=== PATIENT | female | born 1970 | race Caucasian/White ===

== ENCOUNTER 2016-11-01 22:09 | Emergency (ER) | payer BC, OTHER ==
[2016-11-01 22:15] VITALS: TEMP 97.7
[2016-11-01] MEDS ORDERED: ASPIRIN 81 MG CHEW PO STA (22:23)
[2016-11-01] MEDS ORDERED: SODIUM CHLORIDE 0.9% 1,000 ML IV STA (22:23)
--- NOTE | 2016-11-01 22:26 | ED ---
Chest Pain HPI - General Chief Complaint: Chest Pain Stated Complaint: Chest Pain Time Seen by Provider: 11/01/16 22:17 Source: patient, RN notes reviewed Mode of arrival: wheelchair Limitations: no limitations - History of Present Illness Initial Comments: 46-year-old female presents to the emergency department with a chief complaint of left-sided chest pain. Patient states this happened tonight. Patient states just became the stabbing pain that radiated around to her back. Patient states there is no shortness of breath no difficulty breathing no pain to touch. Patient states that she has had this chest pain before. Patient states she'll get it every night before she goes to bed for about a month ago she had an episode with this type intensity. Patient was concerned due to the pain so she thought they should be seen. Patient has no heart history no family heart history patient is a nonsmoker. Patient states her chest pain has since resolved. Patient denies any recent fever, chills, shortness of breath, back pain, abdominal pain, nausea vomiting, numbness or tingling, dysuria or hematuria, constipation or diarrhea, headaches or visual changes, or any other current symptoms. - Related Data Home Medications Medication Instructions Recorded Confirmed Cholecalciferol [Vitamin D3] 1,000 unit PO DAILY 11/01/16 11/01/16 Ibuprofen [Motrin] 600 mg PO Q6HR PRN 11/01/16 11/01/16 Turmeric Root Extract [Turmeric] 500 mg PO DAILY 11/01/16 11/01/16 traMADol HCL [Ultram] 50 mg PO DAILY 11/01/16 11/01/16 Allergies Allergy/AdvReac Type Severity Reaction Status Date / Time No Known Allergies Allergy Verified 11/01/16 22:37 Review of Systems ROS Statement: Those systems with pertinent positive or pertinent negative responses have been documented in the HPI. ROS Other: All systems not noted in ROS Statement are negative. EKG Findings - EKG Comments: EKG Findings:: normal sinus rhythm with premature ventricular complexes 71 bpm, normal axis, no atopy, no S-T depressions or elevations, Past Medical History Additional Past Medical History / Comment(s): back pain History of Any Multi-Drug Resistant Organisms: None Reported Additional Past Surgical History / Comment(s): d&c Past Psychological History: No Psychological Hx Reported Smoking Status: Former smoker Past Alcohol Use History: None Reported Past Drug Use History: None Reported General Exam - General Exam Comments Initial Comments: General: The patient is awake and alert, in no distress, and does not appear acutely ill. Eye: Pupils are equal, round and reactive to light, extra-ocular movements are intact; there is normal conjunctiva bilaterally. No signs of icterus. Ears, nose, mouth and throat: There are moist mucous membranes. Neck: The neck is supple, there is no tenderness. Cardiovascular: There is a regular rate and rhythm. No murmur, rub or gallop is appreciated. Respiratory: Lungs are clear to auscultation, respirations are non-labored, breath sounds are equal. No wheezes, stridor, rales, or rhonchi. Gastrointestinal: Soft, non-distended, non-tender abdomen without masses or organomegaly noted. There is no rebound or guarding present. No CVA tenderness. Bowel sounds are unremarkable. Back: There is no tenderness to palpation in the midline. There is no obvious deformity. No rashes noted. Musculoskeletal: Normal ROM, no tenderness, There is no pedal edema. There is no calf tenderness or swelling. Sensation intact. Pulses equal bilaterally 2+. Neurological: CN II-XII intact, There are no obvious motor or sensory deficits. Coordination appears grossly intact. Speech is normal. Skin: Skin is warm and dry and no rashes or lesions are noted. Psychiatric: Cooperative, appropriate mood & affect, normal judgment. Limitations: no limitations Course Vital Signs 11/01/16 22:11 Temperature 97.7 F Pulse Rate 79 Respiratory 18 Rate Blood Pressure 120/63 O2 Sat by Pulse 96 Oximetry Chest Pain MDM - [facility] 46-year-old female presents emergency Department chief complaint of left sided chest pain. She's been having the pain for about a month. Patient's EKG is reviewed as well as laboratory which does not show any acute findings. Pain has been coming and going for the past month the pain has since resolved without any intervention by us. At this time we discussed follow-up with the family care doctor. We discussed return parameters all the patient's questions. Patient stated that she understood she iscomfortable with the plan. Patient will be discharged. - PERC Rule Heart Rate < 100: (1) Yes No Prior History pf DVT/PE: (1) Yes No Recent Trauma or Surgery: (1) Yes Hemoptysis: (1) Yes No Exogenous Estrogen: (1) Yes No Clinical Signs Suggesting DVT: (1) Yes - GUILLERMO Score Age > 65: (0) No 3 or more CAD Risk Factors: (0) No Known CAD with more than 50% Stenosis: (0) No Aspirin use within the Past 7 Days: (0) No Elevated Cardiac Markers: (0) No ST Deviation Greater than 0.5mm: (0) No Disposition Clinical Impression: Atypical chest pain Disposition: HOME SELF-CARE Condition: Stable Instructions: Chest Pain (ED) Additional Instructions: Please use medication as discussed. Please follow up with family doctor if symptoms have not improved over the next two days. Please return to the emergency room if your symptoms increase or worsen or for any other concerns. Referrals: Fantasma Amor DO [Primary Care Provider] - 1-2 days Time of Disposition: 00:09
--- NOTE | 2016-11-01 22:53 | XR ---
EXAMINATION TYPE: XR chest 2V DATE OF EXAM: 11/01/2016 10:47 PM COMPARISON: NONE HISTORY: Chest and back pain for one month, intermittent, pain getting worse TECHNIQUE: Frontal and lateral views of the chest are obtained. FINDINGS: There is no focal air space opacity, pleural effusion, or pneumothorax seen. The cardiac silhouette size is within normal limits. Mild degenerative changes are present in the thoracic spine. IMPRESSION: 1. No acute cardiopulmonary process. 2. Mild degenerative changes in the thoracic spine.
[2016-11-01 23:23] LABS: Basophils # (A) 0.1 k/uL (0-0.2); Basophils % (A) 1 %; CH 31.9; CHCM 33.9; Eosinophils # (A) 0.2 k/uL (0-0.7); Eosinophils % (A) 3 %; HCT 38.8 % (34.0-46.0); HDW 2.23; Luc # (Auto) 0.18; Luc % (Auto) 3; Lymphocytes # (A) 2.3 k/uL (1.0-4.8); Lymphocytes % (A) 40 %; MCH 31.8 pg (25.0-35.0); MCHC 33.6 g/dL (31.0-37.0); MCV 94.6 fL (80.0-100.0); Mean Platelet Volume 6.6; Monocytes # (A) 0.3 k/uL (0-1.0); Monocytes % (A) 6 %; Neutrophils # (A) 2.8 k/uL (1.3-7.7); Neutrophils % (A) 48 %; RDW 12.8 % (11.5-15.5); WBC 5.8 k/uL (3.8-10.6); WBC (Perox) 6.15
[2016-11-01 23:29] LABS: Prothrombin Time 10.3 sec (9.0-12.0)
[2016-11-01 23:35] LABS: ALT 24 U/L (9-52); AST 19 U/L (14-36); Alkaline Phosphatase 56 U/L (38-126); Amylase 56 U/L (30-110); Anion Gap 8 mmol/L; Blood Urea Nitrogen 16 mg/dL (7-17); Calcium 9.4 mg/dL (8.4-10.2); Carbon Dioxide 28 mmol/L (22-30); Chloride 106 mmol/L (98-107); Glucose 101 mg/dL (74-99); Magnesium 2.2 mg/dL (1.6-2.3); Non-African American GFR(MDRD) >60 (>60 ml/min/1.73 sqM); Potassium 4.4 mmol/L (3.5-5.1); Sodium 142 mmol/L (137-145); Total Bilirubin 0.2 mg/dL (0.2-1.3); Total Protein 6.4 g/dL (6.3-8.2)
[2016-11-01 23:45] LABS: Creatine Kinase 36 U/L (30-135)
[2016-11-01 23:58] LABS: Creatine Kinase MB <0.2 ng/mL (0.0-2.4); Troponin I <0.012 ng/mL (0.000-0.034)
[2016-11-02 00:25] VITALS: BP 100/58; PULSE 73; RESP 16
== END 2016-11-02 00:23 | disposition home or self-care (01) ==
LOC: EC 22:09
DX: R07.89 Other chest pain (principal); Z87.891 Personal history of nicotine dependence; Z79.891 Long term (current) use of opiate analgesic
CPT/HCPCS: 36415; 71020; 80053; 82150; 82550; 82553; 83690; 83735; 84484; 85025; 85610; 85730; 93005; 96360; 99285

== ENCOUNTER → 2016-11-02 | Outpatient (CLI) | payer BC, OTHER ==
--- NOTE | 2016-11-02 11:45 | MM ---
Reason for exam: additional evaluation requested from prior study. Last mammogram was performed 1 year ago. History: Family history of breast cancer in maternal aunt at age 42. Implant Removal of both breasts, May 2015. Benign US breast aspiration ea add LT of the left breast, April 05, 2014. Benign US breast aspiration ea add LT of the left breast, April 05, 2014. Benign US breast aspiration single LT of the left breast, April 05, 2014. Benign US breast aspiration single RT of the right breast, March 18, 2014. Saline implants in both breasts, 2006. Took hormonal contraceptives for 8 years. Physical Findings: Nurse did not find any significant physical abnormalities on exam. MG 3D Diag Mammo W/Cad JAMISON Bilateral CC and MLO view(s) were taken. Prior study comparison: November 04, 2015, right breast MG work up mamm w CAD RT. October 30, 2015, bilateral MG 3d screening mammo w/cad. October 07, 2014, bilateral MG diagnostic mammo w CAD JAMISON. The breast tissue is heterogeneously dense. This may lower the sensitivity of mammography. Finding: There are typically benign dystrophic, regional calcifications in the upper outer quadrant of the right breast. There is a chronic nodularity in the left breast. Stable right outer distortion. New finding and increase in size since October 07, 2014. These results were verbally communicated with the patient and result sheet given to the patient on 11/02/16. ASSESSMENT: Incomplete: need additional imaging evaluation, BI-RAD 0 RECOMMENDATION: Ultrasound of the left breast.
--- NOTE | 2016-11-02 11:48 | USB ---
Reason for exam: additional evaluation requested from abnormal screening. History: Family history of breast cancer in maternal aunt at age 42. Implant Removal of both breasts, May 2015. Benign US breast aspiration ea add LT of the left breast, April 05, 2014. Benign US breast aspiration ea add LT of the left breast, April 05, 2014. Benign US breast aspiration single LT of the left breast, April 05, 2014. Benign US breast aspiration single RT of the right breast, March 18, 2014. Saline implants in both breasts, 2006. Took hormonal contraceptives for 8 years. US Breast LT Left breast ultrasound including all four quadrants, the retroareolar region and axilla demonstrates a 0.6 x 0.6 x 0.5cm round, cystic lesion at 1 o'clock, a 1.4 x 1.0 x 0.5cm cystic lesion at 2 o'clock, a 0.9 x 0.7 x 0.8cm mixed lesion at 2 o'clock, probable debris filled cyst, a 1.8 x 1.8 x 0.9cm oval, cystic lesion at 3 o'clock and a 3.1 x 1.9 x 2.8cm cystic lesion at the posterior nipple with septations, pain at site. These results were verbally communicated with the patient and result sheet given to the patient on 11/02/16. ASSESSMENT: Probably benign, BI-RAD 3 RECOMMENDATION: Ultrasound of the left breast in 6 months. Manage patient on a clinical basis with regard to pain. Aspiration to relieve pain if desired.
== END | disposition home or self-care (01) ==
LOC: RADMAMWWP 10:16
PROVIDERS: ATTEND Family Medicine
DX: R92.8 Other abnormal and inconclusive findings on diagnostic imaging of breast (principal)
CPT/HCPCS: 76641; G0204; G0279

== ENCOUNTER → 2016-11-10 | Day surgery (SDC) | payer BC, OTHER ==
[~2016-11-10] MED LIST: LIDOCAINE 1% INJ 10MG/ML (20 ML MDV) ONE; SODIUM BICARB 4% 5 ML VIAL (0.48 MEQ/ML) ONE
--- NOTE | 2016-11-10 13:28 | USB ---
EXAMINATION TYPE: US breast aspiration single LT DATE OF EXAM: 11/10/2016 1:19 PM CLINICAL HISTORY: N63 Breast Lump/Mass. Painful cyst left breast TECHNIQUE: Ultrasound guided fine-needle aspiration of left breast painful cyst. COMPARISON: Prior ultrasound November 02, 2016 FINDINGS: The procedure of ultrasound guided core fine-needle aspiration and/or biopsy was explained to the patient. Benefits, alternatives, and risks were discussed. An informed consent was then obta ined. The patient was placed in supine positioning for imaging and for the procedure. Preprocedure imaging redemonstrates a bilobed large cysts behind the nipple that is painful per patient similar to prior ultrasound. The overlying skin was prepped and draped in usual sterile fashion. Lidocaine buffered w ith bicarbonate was used as anesthetic into the skin and subcutaneous tissue up to area of concern in the left breast. Under ultrasound guidance, a 20-gauge spinal needle was advanced within lesion and there is successfu l aspiration of roughly 5 cc of cloudy slightly brownish fluid. Lesion is aspirated to resolution. At this point needle was withdrawn. Biopsy is not necessary. The patient tolerated the procedure well without any immediate complication. The patient was kept in the radiology department for short stay after the procedure and then discharged home in stable condi tion. Fluid is not sent as no suspicious blood product is identified during aspiration. Biopsy clip was not left due to above. IMPRESSION: Successful, uncomplicated ultrasound guided fine-needle aspiration of area of concern juan j nful cyst in the left breast.
== END ==
LOC: RADUSWWP 11:39
PROVIDERS: ATTEND Surgery
DX: N60.02 Solitary cyst of left breast (principal)
CPT/HCPCS: 76942; 19000; J2001

== ENCOUNTER → 2016-11-15 | Outpatient (CLI) | payer BC, OTHER ==
[2016-11-15 14:41] LABS: Follicle Stimulating Hormone 2.2 mIU/mL; Prolactin 30.6 ng/mL (3.0-18.6)
== END | disposition home or self-care (01) ==
LOC: LABWHC1 13:36
PROVIDERS: ATTEND Obstetrics & Gynecology
DX: R53.83 Other fatigue (principal); Z13.29 Encounter for screening for other suspected endocrine disorder
CPT/HCPCS: 36415; 83001; 83002; 84146; 84439; 84443

== ENCOUNTER → 2017-06-15 | Outpatient (CLI) | payer BC, OTHER ==
--- NOTE | 2017-06-16 07:56 | MM ---
Reason for exam: follow-up at short interval from prior study. Last mammogram was performed 7 months ago. History: Family history of breast cancer in maternal aunt at age 42. US breast aspiration single LT of the left breast, November 10, 2016. Implant Removal of both breasts, May 2015. Benign US breast aspiration ea add LT of the left breast, April 05, 2014. Benign US breast aspiration ea add LT of the left breast, April 05, 2014. Benign US breast aspiration single LT of the left breast, April 05, 2014. Benign US breast aspiration single RT of the right breast, March 18, 2014. Saline implants in both breasts, 2006. Took hormonal contraceptives for 8 years. Physical Findings: Nurse Summary: 1cm nodule in the right breast at 5 o'clock and a 1cm nodule in the left breast at 1 o'clock (nurse dw). MG 3D Diag Mammo W/Cad JAMISON Bilateral CC and MLO view(s) were taken. Prior study comparison: November 02, 2016, bilateral MG 3d diag mammo w/cad JAMISON. November 04, 2015, right breast MG work up mamm w CAD RT. Finding #1: Architectural distortion in the right breast. Finding #2: There are typically benign round, regional calcifications in the right breast. Multiple nodules bilaterally upper outer quadrants. These results were verbally communicated with the patient and result sheet given to the patient on 06/15/17. ASSESSMENT: Incomplete: need additional imaging evaluation, BI-RAD 0 RECOMMENDATION: Ultrasound of both breasts. (nodules upper outer quadrant and palpables)
--- NOTE | 2017-06-16 08:02 | USB ---
Reason for exam: additional evaluation requested from abnormal screening. History: Family history of breast cancer in maternal aunt at age 42. US breast aspiration single LT of the left breast, November 10, 2016. Implant Removal of both breasts, May 2015. Benign US breast aspiration ea add LT of the left breast, April 05, 2014. Benign US breast aspiration ea add LT of the left breast, April 05, 2014. Benign US breast aspiration single LT of the left breast, April 05, 2014. Benign US breast aspiration single RT of the right breast, March 18, 2014. Saline implants in both breasts, 2006. Took hormonal contraceptives for 8 years. US Breast Limited BILAT Left breast ultrasound includes all four quadrants, the retroareolar region and axilla. Finding demonstrates a 0.7 x 0.7 x 0.7cm cystic lesion at 12 o'clock, a 1.2 x 0.7 x 0.7cm mixed lesion at 1 o'clock, debris filled cyst, a 2.1 x 1.6 x 1.2cm cystic lesion at 3 o'clock and a 0.7 x 0.7 x 0.5cm cystic lesion at 4 o'clock. Right breast ultrasound demonstrates a 1.0 x 0.9 x 0.7cm cystic lesion at 9 o'clock. Stable from 2-16-16. Overall fibrocystic change. These results were verbally communicated with the patient and result sheet given to the patient on 06/15/17. ASSESSMENT: Benign, BI-RAD 2 RECOMMENDATION: Follow-up diagnostic mammogram of both breasts in 1 year.
== END | disposition home or self-care (01) ==
LOC: RADMAMWWP 14:11
PROVIDERS: ATTEND Family Medicine
DX: R92.8 Other abnormal and inconclusive findings on diagnostic imaging of breast (principal)
CPT/HCPCS: 76642; G0204; G0279

== ENCOUNTER → 2021-09-17 | Outpatient (CLI) | payer BC ==
--- NOTE | 2021-09-18 10:04 | MM ---
Reason for exam: additional evaluation requested from prior study. Last mammogram was performed 4 years and 3 months ago. History: Family history of breast cancer in maternal aunt at age 42. US breast aspiration single LT of the left breast, November 10, 2016. Implant Removal of both breasts, May 2015. Benign US breast aspiration ea add LT of the left breast, April 05, 2014. Benign US breast aspiration ea add LT of the left breast, April 05, 2014. Benign US breast aspiration single LT of the left breast, April 05, 2014. Benign US breast aspiration single RT of the right breast, March 18, 2014. Saline implants in both breasts, 2006. Took hormonal contraceptives for 8 years. Physical Findings: Nurse did not find any significant physical abnormalities on exam. MG 3D Diag Mammo W/Cad JAMISON Bilateral CC and MLO view(s) were taken. Spot compression CC and LM view(s) were taken of the left breast. Prior study comparison: June 15, 2017, bilateral MG 3d diag mammo w/cad JAMISON. November 02, 2016, bilateral MG 3d diag mammo w/cad JAMISON. The breast tissue is heterogeneously dense. This may lower the sensitivity of mammography. Stable regional calcifications superior right breast. Lateral posterior asymmetric density left breast does not persist on compression views. These results were verbally communicated with the patient and result sheet given to the patient on 09/17/21. ASSESSMENT: Benign, BI-RAD 2 RECOMMENDATION: Routine screening mammogram of both breasts in 1 year.
== END | disposition home or self-care (01) ==
LOC: RADMAMWWP 14:41
PROVIDERS: ATTEND Family Medicine
DX: R92.1 Mammographic calcification found on diagnostic imaging of breast (principal); N64.89 Other specified disorders of breast; Z80.3 Family history of malignant neoplasm of breast
CPT/HCPCS: 77062; 77066

== ENCOUNTER → 2022-09-20 | Outpatient (CLI) | payer BC ==
--- NOTE | 2022-09-20 15:25 | MM ---
Reason for Exam: Screening (asymptomatic). Last mammogram was performed 1 year(s) and 1 month(s) ago. Patient History: Menarche at age 12. First Full-Term at age 25. Patient used Hormonal Contraceptives for 8 years. 11/10/2016, Cyst Aspiration on the Left side. 04/05/2014, Benign Cyst Aspiration on the left side. 04/05/2014, Benign Cyst Aspiration on the left side. 04/05/2014, Benign Cyst Aspiration on the left side. 03/18/2014, Benign Cyst Aspiration on the right side. 05/2015, Bilateral Implant Removal. 2006, Bilateral Implants. Maternal aunt had breast cancer, age 42. Last menstrual period: 03/03/2022 Risk Values: Kalli 5 year model risk: 1.2%. NCI Lifetime model risk: 8.5%. Prior Study Comparison: 11/02/2016 Bilateral Diagnostic Mammogram, [facility]. 06/15/2017 Bilateral Diagnostic Mammogram, [facility]. 09/17/2021 Bilateral Diagnostic Mammogram, [facility]. Tissue Density: The breast tissue is heterogeneously dense. This may lower the sensitivity of mammography. Findings: Analyzed By CAD. Some loosely grouped tiny benign-appearing round calcifications in the right breast upper outer aspect are redemonstrated. Benign-appearing bilateral axillary lymph nodes are again seen. There is new 2.7 cm oval obscured mass in the central left breast just behind the nipple. Overall Assessment: Incomplete: need additional imaging evaluation, BI-RAD 0 Management: Diagnostic Breast Ultrasound of the left breast. Targeted ultrasound follow-up left breast. Electronically signed and approved by: Bruce Kay M.D.
== END | disposition home or self-care (01) ==
LOC: RADMAMWWP 08:56
PROVIDERS: ATTEND Family Medicine
DX: Z12.31 Encounter for screening mammogram for malignant neoplasm of breast (principal); Z80.3 Family history of malignant neoplasm of breast
CPT/HCPCS: 77063; 77067

== ENCOUNTER → 2022-09-22 | Outpatient (CLI) | payer BC ==
--- NOTE | 2022-09-22 13:53 | USB ---
Reason for Exam: Additional evaluation requested from abnormal screening. Patient History: Menarche at age 12. First Full-Term at age 25. Patient used Hormonal Contraceptives for 8 years. 11/10/2016, Cyst Aspiration on the Left side. 04/05/2014, Benign Cyst Aspiration on the left side. 04/05/2014, Benign Cyst Aspiration on the left side. 04/05/2014, Benign Cyst Aspiration on the left side. 03/18/2014, Benign Cyst Aspiration on the right side. 05/2015, Bilateral Implant Removal. 2006, Bilateral Implants. Maternal aunt had breast cancer, age 42. Risk Values: Kalli 5 year model risk: 1.2%. NCI Lifetime model risk: 8.5%. Technique: Method: Targeted. Prior Study Comparison: 06/15/2017 Bilateral Diagnostic Mammogram, [facility]. 09/17/2021 Bilateral Diagnostic Mammogram, [facility]. 09/20/2022 Bilateral MG 3D screening mammo w/cad, [facility]. Findings: The periareolar of the left breast, the axilla of the left breast and the retroareolar of the left breast were scanned. There is a large cyst which may contain a septation or may be 2 adjacent cysts. This measures 2.1 x 3.4 x 1.3 cm. Posterior wall appears normal. There is good through transmission. This area corresponds to the mammographic finding. Additional small cysts are present. Overall Assessment: Benign, BI-RAD 2 Management: Screening Mammogram of both breasts in 1 year. A clinical breast exam by your physician is recommended on an annual basis and results should be correlated with mammographic findings. This exam should not preclude additional follow-up of suspicious palpable abnormalities. Results were given to the patient verbally at the time of exam. Electronically signed and approved by: Fantasma Ochoa D.O. Radiologis
== END | disposition home or self-care (01) ==
LOC: RADUSWWP 13:20
PROVIDERS: ATTEND Family Medicine
DX: R92.8 Other abnormal and inconclusive findings on diagnostic imaging of breast (principal); Z80.3 Family history of malignant neoplasm of breast; Z98.82 Breast implant status; Z98.890 Other specified postprocedural states

== ENCOUNTER 2023-01-04 09:13 | Emergency (ER) | payer BC ==
[2023-01-04 09:22] VITALS: RESP 18; TEMP 97.8
--- NOTE | 2023-01-04 09:55 | XR ---
EXAMINATION TYPE: XR chest 2V DATE OF EXAM: 01/04/2023 COMPARISON: Chest x-ray November 01, 2016 HISTORY: Chest pain. TECHNIQUE: Frontal and lateral views of the chest are obtained. FINDINGS: There is no focal air space opacity, pleural effusion, or pneumothorax seen. The cardiac silhouette size is stable and within normal limits. Underlying scoliosis is redemonstrated. IMPRESSION: No acute cardiopulmonary process. No significant change from prior.
[2023-01-04 09:59] LABS: INR 0.9 (<1.2)
[2023-01-04 10:00] LABS: Basophils % (A) 1 %; Eosinophils # (A) 0.2 k/uL (0-0.7); Eosinophils % (A) 3 %; HCT 39.9 % (34.0-46.0); HGB 13.5 gm/dL (11.4-16.0); Lymphocytes # (A) 1.6 k/uL (1.0-4.8); Lymphocytes % (A) 32 %; MCH 31.8 pg (25.0-35.0); MCHC 33.7 g/dL (31.0-37.0); MCV 94.2 fL (80.0-100.0); Mean Platelet Volume 7.2; Monocytes # (A) 0.3 k/uL (0-1.0); Monocytes % (A) 7 %; Neutrophils # (A) 2.9 k/uL (1.3-7.7); Neutrophils % (A) 56 %; Platelet Count 301 k/uL (150-450); RBC 4.23 m/uL (3.80-5.40); RDW 12.5 % (11.5-15.5); WBC 5.2 k/uL (3.8-10.6)
[2023-01-04 10:03] LABS: ALT 17 U/L (4-34); AST 28 U/L (14-36); African American GFR (CKD) >90 (>60 ml/min/1.73 sqM); Albumin 4.3 g/dL (3.5-5.0); Alkaline Phosphatase 70 U/L (38-126); Anion Gap 8 mmol/L; Blood Urea Nitrogen 13 mg/dL (7-17); Calcium 9.6 mg/dL (8.4-10.2); Carbon Dioxide 28 mmol/L (22-30); Chloride 99 mmol/L (98-107); Glucose 97 mg/dL (74-99); Magnesium 2.2 mg/dL (1.6-2.3); Non-African American GFR(CKD) >90 (>60 ml/min/1.73 sqM); Potassium 5.5 mmol/L (3.5-5.1); Sodium 135 mmol/L (137-145); Total Bilirubin 0.4 mg/dL (0.2-1.3)
--- NOTE | 2023-01-04 11:45 | ED ---
Chest Pain HPI - General Chief Complaint: Chest Pain Stated Complaint: Chest Pain, Left side pain Time Seen by Provider: 01/04/23 11:20 Source: patient Mode of arrival: ambulatory Limitations: no limitations - History of Present Illness Initial Comments: 52-year-old female presents emergency room reporting left shoulder and arm pain. States his been going on for the past 2 weeks. She has a numbing sensation that starts at the left neck and radiates into her hand. She states that the pain is positional. She took Motrin for a couple of days and it did alleviate her symptoms. She denies any current pain at this time. She denies any chest pain or shortness of breath. No history of cardiac disease. States that she was googling her symptoms online and when she read that it could be her heart, she proceeded to the emergency department. She denies any shortness of breath. No calf pain or swelling. No weakness in the extremity. No other alleviating, houseperson modifying factors - Related Data Previous Rx's Medication Instructions Recorded methocarbamoL [Robaxin] 500 mg PO TID PRN #15 tab 01/04/23 Allergies Allergy/AdvReac Type Severity Reaction Status Date / Time No Known Allergies Allergy Verified 01/04/23 11:34 Review of Systems ROS Statement: Those systems with pertinent positive or pertinent negative responses have been documented in the HPI. ROS Other: All systems not noted in ROS Statement are negative. EKG Findings - EKG Comments: EKG Findings:: EKG demonstrates sinus rhythm with a rate of 81. CA interval 142. QRS 80. QTC of 414. No acute ST segment elevations or depressions Past Medical History Additional Past Medical History / Comment(s): back pain, History of Any Multi-Drug Resistant Organisms: None Reported Additional Past Surgical History / Comment(s): d&c, oral surgery, Past Psychological History: Anxiety Smoking Status: Former smoker Past Alcohol Use History: None Reported Past Drug Use History: None Reported General Exam Limitations: no limitations General appearance: alert, in no apparent distress Head exam: Present: atraumatic, normocephalic, normal inspection Eye exam: Present: normal appearance, PERRL, EOMI. Absent: scleral icterus, conjunctival injection, periorbital swelling ENT exam: Present: normal exam, mucous membranes moist Neck exam: Present: tenderness (left paracervical muscles. indurated trapezius muscle. 5/5 strength b/l upper extremities. 2+ DP and PT pulses). Absent: meningismus, lymphadenopathy Respiratory exam: Present: normal lung sounds bilaterally. Absent: respiratory distress, wheezes, rales, rhonchi, stridor Cardiovascular Exam: Present: regular rate, normal rhythm, normal heart sounds. Absent: systolic murmur, diastolic murmur, rubs, gallop, clicks GI/Abdominal exam: Present: soft, normal bowel sounds. Absent: distended, tenderness, guarding, rebound, rigid Extremities exam: Present: normal inspection, full ROM, normal capillary refill. Absent: tenderness, pedal edema, joint swelling, calf tenderness Back exam: Present: normal inspection Neurological exam: Present: alert, oriented X3, CN II-XII intact Psychiatric exam: Present: normal affect, normal mood Skin exam: Present: warm, dry, intact, normal color. Absent: rash Course Vital Signs 01/04/23 01/04/23 09:18 12:01 Temperature 97.8 F Pulse Rate 69 67 Respiratory 18 18 Rate Blood Pressure 127/87 124/88 O2 Sat by Pulse 100 99 Oximetry Chest Pain MDM - MDM Was pt. sent in by a medical professional or institution (, PA, CADMIUM PLATER, urgent care, hospital, or intermediate...) When possible be specific @ -No Did you speak to anyone other than the patient for history (EMS, parent, family, police, friend...)? What history was obtained from this source @ -No Did you review nursing and triage notes (agree or disagree)? Why? @ -I reviewed and agree with nursing and triage notes Were old charts reviewed (outside hosp., previous admission, EMS record, old EKG, old radiological studies, urgent care reports/EKG's, intermediate records)? Report findings @ -No old charts were reviewed Differential Diagnosis (chest pain, altered mental status, abdominal pain women, abdominal pain men, vaginal bleeding, weakness, fever, dyspnea, syncope, headache, dizziness, GI bleed, back pain, seizure, CVA, palpatations, mental health, musculoskeletal)? @ -acs, nstemi, stemi, cervical radiculopathy EKG interpreted by me (3pts min.). @ -Yes X-rays interpreted by me (1pt min.). @ -yes CT interpreted by me (1pt min.). @ -None done U/S interpreted by me (1pt. min.). @ -None done What testing was considered but not performed or refused? (CT, X-rays, U/S, labs)? Why? @ -None What meds were considered but not given or refused? Why? @ -pain medications - patient refused Did you discuss the management of the patient with other professionals (professionals i.e. , PA, CADMIUM PLATER, lab, RT, psych nurse, social work lecturer, commercial painter, teacher, real estate officer, case assistant)? Give summary @ -No Was smoking cessation discussed for >3mins.? @ -No Was critical care preformed (if so, how long)? @ -No Were there social determinants of health that impacted care today? How? (Homelessness, low income, unemployed, alcoholism, drug addiction, transportation, low edu. Level, literacy, decrease access to med. care, correction, rehab)? @ -No Was there de-escalation of care discussed even if they declined (Discuss DNR or withdrawal of care, Hospice)? DNR status @ -No What co-morbidities impacted this encounter? (DM, HTN, Smoking, COPD, CAD, Cancer, CVA, ARF, Chemo, Hep., AIDS, mental health diagnosis, sleep apnea, morbid obesity)? @ -None Was patient admitted / discharged? Hospital course, mention meds given and route, prescriptions, significant lab abnormalities, going to OR and other pertinent info. @ -Upon arrival patient was placed into room 19. Chemistry physical exam was performed. EKG is obtained. Laboratory studies were conducted. Troponin is undetectable. Chest x-ray demonstrates no acute process. Patient symptoms are consistent with a cervical radiculopathy. I did discuss treatment options. Patient states that she will take Motrin for her symptoms and refuses steroids. She is instructed to follow up with her primary care doctor in 2-4 days. May need repeat imaging if her pain persists. She is given a prescription for Robaxin. Return for any new or worsening symptoms. Patient was agreeable to this and she was discharged home in stable condition Undiagnosed new problem with uncertain prognosis? @ -Yes Drug Therapy requiring intensive monitoring for toxicity (Heparin, Nitro, Insulin, Cardizem)? @ -No Were any procedures done? @ -No Diagnosis/symptom? @ -acute left arm paresthesias, cervical radiculopathy Acute, or Chronic, or Acute on Chronic? @ -acute Uncomplicated (without systemic symptoms) or Complicated (systemic symptoms)? @ -complicated Side effects of treatment? @ -No Exacerbation, Progression, or Severe Exacerbation? @ -No Poses a threat to life or bodily function? How? (Chest pain, USA, PA, pneumonia, PE, COPD, DKA, ARF, appy, cholecystitis, CVA, Diverticulitis, Homicidal, Suicidal, threat to staff... and all critical care pts) @ -No Disposition Clinical Impression: Left shoulder pain Disposition: HOME SELF-CARE Condition: Stable Instructions (If sedation given, give patient instructions): Shoulder Pain (ED) Additional Instructions: Please follow-up with your primary care doctor. You may need further imaging of your neck if your pain persists. Take Motrin 600 mg every 6 hours. Use warm compresses to the site. Take the Robaxin at night and return for any new or worsening symptoms Prescriptions: methocarbamoL [Robaxin] 500 mg PO TID PRN #15 tab PRN Reason: muscle spasms Is patient prescribed a controlled substance at d/c from ED?: No Referrals: Fantasma Amor DO [Primary Care Provider] - 1-2 days Time of Disposition: 11:45
[2023-01-04 12:03] VITALS: BP 124/88; PULSE 67
== END 2023-01-04 12:03 | disposition home or self-care (01) ==
LOC: EC 09:13
DX: M25.512 Pain in left shoulder (principal); Z87.891 Personal history of nicotine dependence
CPT/HCPCS: 36415; 71046; 80053; 83735; 84484; 85025; 85610; 85730; 93005; 99285

== ENCOUNTER → 2023-01-31 | Outpatient (CLI) | payer BC ==
--- NOTE | 2023-01-31 09:23 | CT ---
EXAMINATION TYPE: CT abdomen w con DATE OF EXAM: 01/31/2023 COMPARISON: None HISTORY: RUQ abdominal pain. CT DLP: 701 mGycm Automated exposure control for dose reduction was used. TECHNIQUE: Helical acquisition of images was performed from the lung bases through the top of iliac crest to include entire abdomen. CONTRAST: Performed with Oral Contrast and with IV Contrast, patient injected with 100ml mL of Isovue 300. FINDINGS: The visualized lung bases are clear. There is no organomegaly involving the liver, pancreas, spleen or adrenal glands. There are a few tiny low-density lesions within the liver which are too small to characterize but mos t likely/statistically represent tiny hepatic cysts. The gallbladder is contracted and there is no gallstones or pericholecystic fluid or wall thickening. There is no biliary ductal dilatation Kidneys enhance symmetrically and there is no solid renal mass or hydronephrosis. The caliber the abd ominal aorta is normal and there is no retroperitoneal adenopathy or hemorrhage. Visualized bowel loops are normal in caliber is no dilatation or obstruction. There is no free intrap eritoneal air or fluid. No inflammatory changes are identified in the bowel wall or mesentery. The osseous structures and soft tissues unremarkable. IMPRESSION: No significant abnormality seen.
== END | disposition home or self-care (01) ==
LOC: RADCTMAIN 08:13
PROVIDERS: ATTEND Family Medicine
DX: R10.11 Right upper quadrant pain (principal)
CPT/HCPCS: 74160; Q9967

== ENCOUNTER → 2023-07-13 | Outpatient (CLI) | payer BC ==
--- NOTE | 2023-07-13 13:35 | MM ---
Reason for Exam: Clinical finding. Last screening mammogram was performed 9 month(s) ago. Patient History: Menarche at age 12. First Full-Term at age 25. Perimenopausal. Patient used Hormonal Contraceptives for 8 years. 11/10/2016, Cyst Aspiration on the Left side. 04/05/2014, Benign Cyst Aspiration on the left side. 04/05/2014, Benign Cyst Aspiration on the left side. 04/05/2014, Benign Cyst Aspiration on the left side. 03/18/2014, Benign Cyst Aspiration on the right side. 05/2015, Bilateral Implant Removal. 2006, Bilateral Implants. Maternal aunt had breast cancer, age 42. Risk Values: Kalli 5 year model risk: 1.2%. NCI Lifetime model risk: 8.5%. Tissue Density: The breast tissue is heterogeneously dense. This may lower the sensitivity of mammography. Findings: Analyzed By CAD. Pattern appears stable. There is a 2.6 x 3.0 cm area of increased density in the subareolar outer left breast. This area is larger than comparison. Additional evaluation with ultrasound is recommended Breast otherwise appears stable. Benign punctate calcifications are within the right breast. No suspicious groups of microcalcifications, spiculated or lobular masses, architectural distortion or other secondary signs of malignancy are mammographically apparent. Overall Assessment: Incomplete: need additional imaging evaluation, BI-RAD 0 Management: Diagnostic Breast Ultrasound of the left breast. A negative mammogram report should not preclude additional follow up of suspicious palpable abnormalities. Patient should continue monthly self breast exam. A clinical breast exam by your physician is recommended on an annual basis and results should be correlated with mammographic findings. Electronically signed and approved by: Fantasma Ochoa D.O. Radiologis
--- NOTE | 2023-07-13 14:43 | USB ---
Reason for Exam: Clinical finding. Patient History: Menarche at age 12. First Full-Term at age 25. Perimenopausal. Patient used Hormonal Contraceptives for 8 years. 11/10/2016, Cyst Aspiration on the Left side. 04/05/2014, Benign Cyst Aspiration on the left side. 04/05/2014, Benign Cyst Aspiration on the left side. 04/05/2014, Benign Cyst Aspiration on the left side. 03/18/2014, Benign Cyst Aspiration on the right side. 05/2015, Bilateral Implant Removal. 2006, Bilateral Implants. Maternal aunt had breast cancer, age 42. Risk Values: Kalli 5 year model risk: 1.2%. NCI Lifetime model risk: 8.5%. Technique: Method: Targeted. Prior Study Comparison: 06/15/2017 Bilateral Diagnostic Mammogram, [facility]. 09/17/2021 Bilateral Diagnostic Mammogram, [facility]. 09/20/2022 Bilateral MG 3D screening mammo w/cad, [facility]. Findings: The area of palpable concern of the left breast was scanned. There is a large cyst with adjacent smaller cyst adjacent. This area measures 3.1 x 2.1 x 2.5 cm which is slightly enlarged comparison. Overall Assessment: Benign, BI-RAD 2 Management: Screening Mammogram of both breasts in 1 year. A clinical breast exam by your physician is recommended on an annual basis and results should be correlated with mammographic findings. This exam should not preclude additional follow-up of suspicious palpable abnormalities. Results were given to the patient verbally at the time of exam. Electronically signed and approved by: Fantasma Ochoa D.O. Radiologis
== END | disposition home or self-care (01) ==
LOC: RADMAMWWP 12:31
PROVIDERS: ATTEND Obstetrics & Gynecology
DX: N63.20 Unspecified lump in the left breast, unspecified quadrant (principal); Z80.3 Family history of malignant neoplasm of breast
CPT/HCPCS: 77062; 77066

== ENCOUNTER → 2023-08-25 | Outpatient (CLI) | payer BC ==
[2023-08-25 11:27] VITALS: BP 123/79; PULSE 67; RESP 16; TEMP 97.8
--- NOTE | 2023-08-25 11:44 | P.GSHP ---
History of Present Illness H&P Date: 08/25/23 Chief Complaint: mass left breast Solange is a 53 year old whtie female seen in consultation for Dr. Maya regarding a left breast mass. She had a bilateral mammogram on 07-13-23 which led to a left breast ultrasound. A 3.1 by 2.5 CM cyst was found. This was felt to be BIRAD 2. She states she lost some weight and found the lesion in the shower about 6 weeks ago. She hasn't checked to see if she can still feel it. She has not had any trauma or infection in her breast. She has had bilateral breast implants in 2006 and has had them removed in 2014 and bilateral breast lifts. They were removed because they were uncomfortable. She has not had any other breast surgery. She is using vaginal Estrace cream. CAffiene: 2 cups coffee/day nicotine: none chocolate: occasional BCP: use for about 10 years , stopped in her 20's hormones: progesterone for a year at 49 Family HIstory: maternal aunt: breast cancer in 40's maternal aunt: thyroid cancer mother: lung cancer, smoker maternal aunt: lung cancer smoker Hormonal History: menarche: 13 M3, breat fed: no, age at : 25 menopause: no period since Oct. vaginal estrace cream three times a week Surgical History: D&C Browlift Bilateral breast implants and removal with lifts Medical History: none Social history: Nicotine: Negative Alcohol: Negative Drugs:none - Constitutional Constitutional: Denies chills, Denies fever - EENT Eyes: denies blurred vision, denies pain Ears: deny: decreased hearing, tinnitus Ears, nose, mouth and throat: Denies headache, Denies sore throat - Breasts Breasts: bilateral: as per HPI - Cardiovascular Cardiovascular: Denies chest pain, Denies shortness of breath - Respiratory Respiratory: Denies cough, Denies 7 - Gastrointestinal Gastrointestinal: Reports constipation, Denies abdominal pain, Denies diarrhea, Denies nausea, Denies vomiting - Genitourinary (Female) Genitourinary: Denies dysuria, Denies hematuria - Menstruation Menstruation: Reports as per HPI - Musculoskeletal Comment: scoliosis - Integumentary Integumentary: Denies pruritus, Denies rash - Neurological Neurological: Denies numbness, Denies weakness - Psychiatric Psychiatric: Denies anxiety, Denies depression - Endocrine Endocrine: Denies fatigue, Denies weight change - Hematologic/Lymphatic Comment: none - Allergic/Immunologic Allergic/Immunologic: Reports seasonal allergies Past Medical History Additional Past Medical History / Comment(s): back pain History of Any Multi-Drug Resistant Organisms: None Reported Additional Past Surgical History / Comment(s): d&c Past Psychological History: No Psychological Hx Reported Smoking Status: Former smoker Past Alcohol Use History: None Reported Past Drug Use History: None Reported Medications and Allergies Home Medications Medication Instructions Recorded Confirmed Type Cholecalciferol [Vitamin D3 (25 25 mcg PO DAILY 08/25/23 08/25/23 History Mcg = 1000 Iu)] Estradiol Cream [Estrace Cream 1 gm VAGINAL Q3D 08/25/23 08/25/23 History 0.01%] Magnesium Oxide [Magnesium] 500 mg PO DAILY 08/25/23 08/25/23 History Allergies Allergy/AdvReac Type Severity Reaction Status Date / Time gabapentin AdvReac Unknown Unverified 08/25/23 11:21 Surgical - Exam Vital Signs Temp Pulse Resp BP Pulse Ox 97.8 F 67 16 123/79 100 08/25/23 11:16 08/25/23 11:16 08/25/23 11:16 08/25/23 11:16 08/25/23 11:16 - General no distress - Neck trachea midline - Respiratory normal respiratory effort, clear to auscultation - Cardiovascular Rhythm: regular Heart Sounds: normal: S1, S2 - Integumentary normal turgor - Neurologic no disoriented, no combative - Musculoskeletal normal gait - Psychiatric oriented to time, oriented to person, oriented to place, speech is normal, memory intact Breast Exam: BRA: 36DD Inspection: Well-healed scars from prior breast surgery, bilateral grade 2 ptosis Palpation: Right breast: Multiple positional exam fibrocystic changes no discrete dominant masses or nodules of concern Right axilla: No adenopathy of concern Left breast: Fibrocystic changes, the area of concern is firmer than the contralateral area but a discrete cyst wall was not palpated Left axilla: No adenopathy of concern Results reviewed mammogram on ultrasound from 07-13-23 Assessment and Plan Assessment: Impression: Mass left breast consistent with a cyst on ultrasound Bilateral changes secondary to scarring from prior breast surgery Plan: The area of concern in the left breast is not as clearly palpated as I would like it to be therefore I have recommended cyst aspiration by ultrasound guidance as this is asymptomatic cyst for the patient Patient to follow up after systemic aspiration CC: Dr. Maya, Dr. Amor
== END ==
LOC: WWCWWP 10:42
PROVIDERS: ATTEND Surgery
DX: R92.8 Other abnormal and inconclusive findings on diagnostic imaging of breast (principal); N63.20 Unspecified lump in the left breast, unspecified quadrant; Z80.3 Family history of malignant neoplasm of breast; Z87.891 Personal history of nicotine dependence; Z88.8 Allergy status to other drugs, medicaments and biological substances

== ENCOUNTER → 2023-09-23 | Day surgery (SDC) | payer BC ==
--- NOTE | 2023-09-28 08:04 | MM ---
Reason for Exam: Post Procedure Mammogram. Last screening mammogram was performed 3 month(s) ago. Patient History: Menarche at age 12. First Full-Term at age 25. Perimenopausal. Patient used Hormonal Contraceptives for 8 years. 11/10/2016, Cyst Aspiration on the Left side. 04/05/2014, Benign Cyst Aspiration on the left side. 04/05/2014, Benign Cyst Aspiration on the left side. 04/05/2014, Benign Cyst Aspiration on the left side. 03/18/2014, Benign Cyst Aspiration on the right side. 05/2015, Bilateral Implant Removal. 2006, Bilateral Implants. Maternal aunt had breast cancer, age 42. Risk Values: Kalli 5 year model risk: 1.2%. NCI Lifetime model risk: 8.3%. Prior Study Comparison: 09/17/2021 Bilateral Diagnostic Mammogram, [facility]. 09/20/2022 Bilateral MG 3D screening mammo w/cad, [facility]. 07/13/2023 Bilateral MG 3D diag mammo w/cad [facility], [facility]. Tissue Density: Left: The breast tissue is heterogeneously dense. This may lower the sensitivity of mammography. Pathology Description: Location: 4 o'clock. A small cyst is identified in the region of the palpable abnormality 4:00 position 3 cm from the nipple. Patient complains of pain in this region extending towards the axilla. Finding has significantly diminished in size from the comparison. The ultrasound guided cyst aspiration procedure was explained to the patient. The risks, benefits, alternatives were discussed. An informed consent was then obtained. A time out was performed. The patient was placed in supine positioning for imaging and for the procedure. The overlying skin was prepped with irregular exiting and sterilely draped in usual sterile fashion. 3 ml 1% lidocaine was used as anesthetic into the skin and deeper breast tissue up to area of concern in the lower outer 4 o'clock breast, 3 cm from nipple. Under ultrasound guidance, an 18-gauge spinal needle was advanced into the cyst and aspiration yielded 0.5 mL of minimal fluid. Residual cyst that was present collapsed easily without difficulty. The fluid was labeled and sent for laboratory analysis. A coil clip was left in lesion. Good hemostasis was obtained with direct pressure. Postprocedure mammogram: The patient was transferred to mammography for physician ordered post procedure mammogram for clip placement verification. The clip is in the expected region of the biopsy. The patient tolerated the procedure well without any immediate complication. The patient was discharged to home in stable condition. Impression: Successful ultrasound guided cyst aspiration left breast. Cytology pending. Pathology Results: Result: Benign, Benign cyst. LEFT BREAST, FOUR O'CLOCK POSITION, ASPIRATION: Numerous foamy macrophages with peripheral blood and focal degenerative change (see note). Rare benign ductal cells present. Notes Per EMR: It is noted the patient has a mass within the left breast clinically consistent with a cyst on ultrasound along with a stated history of bilateral breast implants, status post removal in 2014. The abundant foamy macrophages seen likely represents fat necrosis with associated degenerative changes. If there is clinical concern for malignancy, additional tissue sampling with a core tissue can be performed, if clinically warranted. Correlation with imaging studies is suggested, as indicated. Overall Assessment: Benign Assessment: MG diagnostic mammo LT wo CAD. - Left: Benign, BI-RAD 2. Management: Screening Mammogram of the left breast in 6 months. Electronically signed and approved by: Fantasma Ochoa D.O. Radiologis
== END ==
LOC: RADUSWWP 10:10
PROVIDERS: ATTEND Surgery
DX: N63.20 Unspecified lump in the left breast, unspecified quadrant (principal); Z80.3 Family history of malignant neoplasm of breast
CPT/HCPCS: 88305; 88173; 77065; 76942; 19000; A4648

== ENCOUNTER → 2023-09-28 | Outpatient (CLI) | payer BC ==
--- NOTE | 2023-09-28 12:13 | P.PN ---
Subjective Progress Note Date: 09/28/23 Solange is a 53 year old white female seen in consultation for Dr. Maya regarding a left breast mass. She had a bilateral mammogram on 07-13-23 which led to a left breast ultrasound. A 3.1 by 2.5 CM cyst was found. This was felt to be BIRAD 2. She states she lost some weight and found the lesion in the shower about 6 weeks ago. She hasn't checked to see if she can still feel it. She has not had any trauma or infection in her breast. She has had bilateral breast implants in 2006 and has had them removed in 2014 and bilateral breast lifts. They were removed because they were uncomfortable. She has not had any other breast surgery. She is using vaginal Estrace cream. An ultrasound guided core biopsy of the area was preformed on 09-23-23, which was benign concordant. This was reviewed with Dr. Mendoza who felt this was benign concordant. The pain she had before has resolved. Objective - Constitutional General appearance: Present: cooperative - EENT Eyes: Present: EOMI - Neck Neck: Present: normal ROM - Respiratory Respiratory: bilateral: CTA - Cardiovascular Heart sounds: normal: S1, S2 - Integumentary Integumentary Comment(s): mild echymosis at biopsy site, no evidence of hematoma or infection - Musculoskeletal Musculoskeletal: Present: gait normal - Psychiatric Psychiatric: Present: A&O x's 3, appropriate affect, intact judgment & insight Assessment and Plan Assessment: Impression: Biopsy concordant left breast area, this was reviewed personally with Dr. Ochoa it is felt that there was a cystic lesion which resolved and the tissue obtained was benign Patient is healing well without difficulty at this time Plan: Left breast mammogram in 6 months with examination at that time Patient will follow-up sooner any questions or concerns CC: DR. Amor
[2023-09-28 12:39] VITALS: BP 113/79; PULSE 70; RESP 17; TEMP 97
== END ==
LOC: WWCWWP 11:34
PROVIDERS: ATTEND Surgery
DX: N63.20 Unspecified lump in the left breast, unspecified quadrant (principal); Z87.2 Personal history of diseases of the skin and subcutaneous tissue; Z88.9 Allergy status to unspecified drugs, medicaments and biological substances; Z87.891 Personal history of nicotine dependence

== ENCOUNTER → 2023-12-20 | Outpatient (CLI) | payer BC ==
--- NOTE | 2023-12-21 09:23 | CA ---
Transthoracic Echo Report Name: Solange Dent Age: 53 Gender: F : 1970 Exam Date: 12/20/2023 14:00 Exam Location: [facility] Ht (in): 68 Wt (lb): 140 Ordering Physician: Fantasma Amor DO Attending/Referring Phys: Jaqueline Hoskins PAC Nutrition Faculty Member Natasha Ballesteros RDCS Procedure CPT: Indications: R00.2 palpitations Cardiac Hx: Technical Quality: Fair Contrast 1: Total Dose (mL): Contrast 2: Total Dose (mL): MEASUREMENTS (Male / Female) Normal Values 2D ECHO LV Diastolic Diameter PLAX 4.3 cm 4.2 - 5.9 / 3.9 - 5.3 cm LV Systolic Diameter PLAX 2.7 cm IVS Diastolic Thickness 0.9 cm 0.6 - 1.0 / 0.6 - 0.9 cm LVPW Diastolic Thickness 0.9 cm 0.6 - 1.0 / 0.6 - 0.9 cm LV Relative Wall Thickness 0.4 RV Internal Dim ED PLAX 2.5 cm LA Volume 57.9 cm??? 18 - 58 / 22 - 52 cm??? LA Volume Index 33.2 cm???/m??? 16 - 28 cm???/m??? M-MODE Aortic Root Diameter MM 2.6 cm LA Systolic Diameter MM 2.8 cm LA Ao Ratio MM 1.1 AV Cusp Separation MM 1.8 cm DOPPLER AV Peak Velocity 166.2 cm/s AV Peak Gradient 11.0 mmHg AV Mean Velocity 100.4 cm/s AV Mean Gradient 4.7 mmHg AV Velocity Time Integral 31.7 cm LVOT Peak Velocity 143.3 cm/s LVOT Peak Gradient 8.2 mmHg LVOT Velocity Time Integral 30.4 cm MV Area PHT 2.8 cm??? Mitral E Point Velocity 90.0 cm/s Mitral A Point Velocity 79.7 cm/s Mitral E to A Ratio 1.1 MV Deceleration Time 270.2 ms MV E' Velocity 13.6 cm/s Mitral E to MV E' Ratio 6.6 FINDINGS Left Ventricle Normal Left ventricular size, wall thickness, systolic function with no obvious regional wall motion abnormalities. Normal Left ventricular diastolic filling pattern. Left ventricular ejection fraction is estimated at 55-60 %. Right Ventricle Normal right ventricular size and function. Right ventricular systolic pressure within normal limits. Right Atrium Normal right atrial size. Left Atrium Mildly increased left atrial volume. Mitral Valve Structurally normal mitral valve. Mild mitral annular calcification. Mild mitral regurgitation. Aortic Valve Trileaflet aortic valve. No aortic valve stenosis or regurgitation. Tricuspid Valve Structurally normal tricuspid valve. Pulmonic Valve Structurally normal pulmonic valve. Pericardium No pericardial effusion. Aorta Normal size aortic root and proximal ascending aorta. CONCLUSIONS Left ventricular ejection fraction 55-60% Mild mitral regurgitation No pericardial effusion Previewed by: Dr. Genaro Garcia DO (Electronically Signed) Final Date: 21 December 2023 09:22
== END | disposition home or self-care (01) ==
LOC: RADECHMAIN 13:41
PROVIDERS: ATTEND Family Medicine
DX: I34.0 Nonrheumatic mitral (valve) insufficiency (principal)
CPT/HCPCS: 93306

== ENCOUNTER → 2024-03-28 | Outpatient (CLI) | payer OTHER ==
--- NOTE | 2024-03-28 11:26 | MM ---
Reason for Exam: Follow-up at short interval from prior study. Last screening mammogram was performed 9 month(s) ago. Patient History: Menarche at age 12. First Full-Term at age 25. Perimenopausal. Patient used Hormonal Contraceptives for 8 years. 09/23/2023, Benign US breast aspiration single LT on the left side. 11/10/2016, Cyst Aspiration on the Left side. 04/05/2014, Benign Cyst Aspiration on the left side. 04/05/2014, Benign Cyst Aspiration on the left side. 04/05/2014, Benign Cyst Aspiration on the left side. 03/18/2014, Benign Cyst Aspiration on the right side. 05/2015, Bilateral Implant Removal. 2006, Bilateral Implants. Maternal aunt had breast cancer, age 42. Risk Values: Kalli 5 year model risk: 1.2%. NCI Lifetime model risk: 8.3%. Prior Study Comparison: 09/20/2022 Bilateral MG 3D screening mammo w/cad, [facility]. 07/13/2023 Bilateral MG 3D diag mammo w/cad [facility], [facility]. 09/23/2023 Left MG diagnostic mammo LT wo CAD., [facility]. Tissue Density: Left: The breasts are heterogeneously dense, which may obscure small masses. Findings: Analyzed By CAD. The pattern appears stable. Benign-appearing rounded densities in the outer upper left breast. Core marker is within the mid left breast. No suspicious groups of microcalcifications, spiculated or lobular masses, architectural distortion or other secondary signs of malignancy are mammographically apparent. Overall Assessment: Benign, BI-RAD 2 Management: Screening Mammogram of both breasts in 6 months. A negative mammogram report should not preclude additional follow up of suspicious palpable abnormalities. Patient should continue monthly self breast exam. A clinical breast exam by your physician is recommended on an annual basis and results should be correlated with mammographic findings. Note on Kalli scores and lifetime risk: 1. A Kalli score greater than 3% is considered moderate risk. If this is the case, consider specialist referral to assess eligibility for a risk reducing agent. 2. If overall lifetime risk for the development of breast cancer is 20% or higher, the patient may qualify for future screening with alternating mammogram and breast MRI. Electronically signed and approved by: Fantasma Ochoa D.O. Radiologis
== END | disposition home or self-care (01) ==
LOC: RADMAMWWP 10:46
PROVIDERS: ATTEND Surgery
DX: R92.8 Other abnormal and inconclusive findings on diagnostic imaging of breast (principal); R92.332 Mammographic heterogeneous density, left breast; Z80.3 Family history of malignant neoplasm of breast; Z78.0 Asymptomatic menopausal state
CPT/HCPCS: 77061; 77065

== ENCOUNTER → 2024-03-30 | Outpatient (CLI) | payer OTHER ==
[2024-03-30 14:42] VITALS: BP 104/66; PULSE 74; RESP 16
--- NOTE | 2024-03-30 14:54 | P.PN ---
Subjective Progress Note Date: 03/30/24 03-30-24 The patient underwent a left breast cyst aspiration on 09-23-23 and the findings were benign concordant. She had a left breast mammogram on 03-28-24 which was BIRAD 2. Solange was initially seen in August 2023 with a complaint of a lump in her left breast. She had lost some weight and found the lesion in the shower about 6 weeks prior to being seen. An ultrasound revealed a 3.1 x 2.5 cm cyst which was in the area. This was subsequently aspirated with complete resolution and the pain resolved. She has had prior surgery on her breast having had bilateral breast implants in 2006 and subsequently removed in 2014. She has also had bilateral breast lifts. The implants were removed because they were uncomfortable. She has not had other breast surgery. She is not using any hormonal supplements at this time. At this time she is not complaining of any new lumps masses or nodules of concern in either breast. She had a left breast mammogram on 03-28-2024 which was benign BI-RADS 2. CAffiene: 2 cups coffee/day nicotine: none chocolate: daily BCP: use for about 10 years , stopped in her 20's hormones: progesterone for a year at 49; stopped this about 1 year ago Family History: maternal aunt: breast cancer in 's maternal aunt: thyroid cancer mother: lung cancer, smoker maternal aunt: lung cancer smoker Hormonal History: menarche: 13 M3, breat fed: no, age at : 25 menopause: no period since Oct. vaginal estrace cream three times a week stopped about 1 year ago Surgical History: D&C Browlift Bilateral breast implants and removal with lifts Medical History: none Social history: Nicotine: Negative Alcohol: Negative Drugs:none - Constitutional Constitutional: Denies chills, Denies fever - EENT Eyes: denies blurred vision, denies pain Ears: deny: decreased hearing, tinnitus Ears, nose, mouth and throat: Denies headache, Denies sore throat - Breasts Breasts: bilateral: as per HPI - Cardiovascular Cardiovascular: Denies chest pain, Denies shortness of breath - Respiratory Respiratory: Denies cough - Gastrointestinal Gastrointestinal: Reports constipation, Denies abdominal pain, Denies diarrhea, Denies nausea, Denies vomiting - Genitourinary (Female) Genitourinary: Denies dysuria, Denies hematuria - Menstruation Menstruation: Reports as per HPI - Musculoskeletal Comment: scoliosis - Integumentary Integumentary: Denies pruritus, Denies rash - Neurological Neurological: Denies numbness, Denies weakness - Psychiatric Psychiatric: Denies anxiety, Denies depression - Endocrine Endocrine: Denies fatigue, Denies weight change - Hematologic/Lymphatic Comment: none - Allergic/Immunologic Allergic/Immunologic: Reports seasonal allergies Past Medical History Additional Past Medical History / Comment(s): back pain History of Any Multi-Drug Resistant Organisms: None Reported Additional Past Surgical History / Comment(s): d&c Past Psychological History: No Psychological Hx Reported Smoking Status: Former smoker Past Alcohol Use History: None Reported Past Drug Use History: None Reported Medications and Allergies Home Medications Medication Instructions Recorded Confirmed Type Cholecalciferol [Vitamin D3 (25 25 mcg PO DAILY 08/25/23 08/25/23 History Mcg = 1000 Iu)] Estradiol Cream [Estrace Cream 1 gm VAGINAL Q3D 08/25/23 08/25/23 History 0.01%] Magnesium Oxide [Magnesium] 500 mg PO DAILY 08/25/23 08/25/23 History Allergies Allergy/AdvReac Type Severity Reaction Status Date / Time gabapentin AdvReac Unknown Unverified 08/25/23 11:21 Objective - Constitutional General appearance: Present: cooperative - EENT Eyes: Present: EOMI ENT: Present: hearing grossly normal - Neck Neck: Present: normal ROM - Respiratory Respiratory: bilateral: CTA - Cardiovascular Heart sounds: normal: S1, S2 - Integumentary Integumentary: Present: normal turgor - Musculoskeletal Musculoskeletal: Present: gait normal - Psychiatric Psychiatric: Present: A&O x's 3, appropriate affect, intact judgment & insight - Additional findings Additional findings: Breast Exam: BRA: 36DD Inspection: Well-healed scars from prior breast surgery, bilateral grade 2 ptosis Palpation: Right breast: Multiple positional exam fibrocystic changes no discrete dominant masses or nodules of concern Right axilla: No adenopathy of concern Left breast: Fibrocystic changes, no masses or nodules of concern Left axilla: No adenopathy of concern Assessment and Plan Assessment: Impression: Fibrocystic breast changes Plan: Bilateral mammogram in 6 months/August 2024 with appointment at that time Patient to follow-up sooner any questions or concerns CC: Dr. Maya, Dr. Amro
== END ==
LOC: WWCWWP 13:33
PROVIDERS: ATTEND Surgery
DX: N60.11 Diffuse cystic mastopathy of right breast (principal); N60.12 Diffuse cystic mastopathy of left breast; N63.20 Unspecified lump in the left breast, unspecified quadrant; R63.4 Abnormal weight loss; Z80.3 Family history of malignant neoplasm of breast; Z87.891 Personal history of nicotine dependence; Z88.8 Allergy status to other drugs, medicaments and biological substances

== ENCOUNTER → 2024-10-01 | Outpatient (CLI) | payer BC ==
--- NOTE | 2024-10-01 12:15 | MM ---
Reason for Exam: Screening (asymptomatic). Last mammogram was performed 1 year(s) and 3 month(s) ago. Patient History: Menarche at age 12. First Full-Term at age 25. Perimenopausal. Patient used Hormonal Contraceptives for 8 years. 09/23/2023, Benign US breast aspiration single LT on the left side. 11/10/2016, Cyst Aspiration on the Left side. 04/05/2014, Benign Cyst Aspiration on the left side. 04/05/2014, Benign Cyst Aspiration on the left side. 04/05/2014, Benign Cyst Aspiration on the left side. 03/18/2014, Benign Cyst Aspiration on the right side. 05/2015, Bilateral Implant Removal. 2006, Bilateral Implants. Maternal aunt had breast cancer, age 42. Risk Values: Kalli 5 year model risk: 1.2%. NCI Lifetime model risk: 8.1%. Prior Study Comparison: 07/13/2023 Bilateral MG 3D diag mammo w/cad [facility], [facility]. 09/23/2023 Left MG diagnostic mammo LT wo CAD., [facility]. 03/28/2024 Left MG 3D diag mammo w/cad LT, [facility]. Tissue Density: The breasts are heterogeneously dense, which may obscure small masses. Analyzed By CAD. Overall Assessment: Incomplete: need additional imaging evaluation, BI-RAD 0 Management: Diagnostic Breast Ultrasound of the right breast. Electronically signed and approved by: Bruce Kay M.D.
== END | disposition home or self-care (01) ==
LOC: RADMAMWWP 09:23
PROVIDERS: ATTEND Surgery
DX: Z12.31 Encounter for screening mammogram for malignant neoplasm of breast (principal); Z80.3 Family history of malignant neoplasm of breast; R92.333 Mammographic heterogeneous density, bilateral breasts; Z98.82 Breast implant status
CPT/HCPCS: 77063; 77067

== ENCOUNTER → 2024-10-03 | Outpatient (CLI) | payer BC ==
--- NOTE | 2024-10-03 13:35 | USB ---
Reason for Exam: Additional evaluation requested from abnormal screening. Patient History: Menarche at age 12. First Full-Term at age 25. Perimenopausal. Patient used Hormonal Contraceptives for 8 years. 09/23/2023, Benign US breast aspiration single LT on the left side. 11/10/2016, Cyst Aspiration on the Left side. 04/05/2014, Benign Cyst Aspiration on the left side. 04/05/2014, Benign Cyst Aspiration on the left side. 04/05/2014, Benign Cyst Aspiration on the left side. 03/18/2014, Benign Cyst Aspiration on the right side. 05/2015, Bilateral Implant Removal. 2006, Bilateral Implants. Maternal aunt had breast cancer, age 42. Risk Values: Kalli 5 year model risk: 1.2%. NCI Lifetime model risk: 8.1%. Prior Study Comparison: 09/23/2023 Left MG diagnostic mammo LT wo CAD., [facility]. 03/28/2024 Left MG 3D diag mammo w/cad LT, [facility]. 10/01/2024 Bilateral MG 3D screening mammo w/cad, [facility]. Findings: The upper outer quadrant of the right breast, the axilla of the right breast and the retroareolar of the right breast were scanned. Targeted ultrasound right breast shows a 4 mm thin-walled cyst 10:00 position 5 cm distance from nipple. Slightly deeper aspect there is 5 x 4 mm oval hypoechoic to anechoic lesion with increased through transmission and no vascularity thought to reflect an additional simple thin-walled cyst . No concerning solid or cystic mass clearly seen. Overall Assessment: Benign, BI-RAD 2 Management: Screening Mammogram of both breasts in 1 year. Return to routine follow-up. A clinical breast exam by your physician is recommended on an annual basis and results should be correlated with mammographic findings. This exam should not preclude additional follow-up of suspicious palpable abnormalities. Results were given to the patient verbally at the time of exam. [facility], , 10/03/2024 1:33 PM. Electronically signed and approved by: Bruce Kay M.D.
== END | disposition home or self-care (01) ==
LOC: RADUSWWP 12:50
PROVIDERS: ATTEND Surgery
DX: R92.8 Other abnormal and inconclusive findings on diagnostic imaging of breast (principal); Z80.3 Family history of malignant neoplasm of breast